=== PATIENT | female | born 1995 | race Caucasian/White ===

== ENCOUNTER 2023-07-09 03:36 | Observation (INO) | payer SELFPAY ==
[2023-07-09 03:47] VITALS: BMI 26.6
[2023-07-09] MEDS ORDERED: SODIUM CHLORIDE 0.9% 500 ML INFUS.BAG IV ONE (03:58)
[2023-07-09] MEDS ORDERED: FAMOTIDINE 20 MG/50 ML IVPB 20 MG/50 ML MG IVPB ONE ×2 (03:58→04:22)
[2023-07-09] MEDS ORDERED: ONDANSETRON 4 MG/2 ML VIAL IVPUSH ONE (03:58)
[2023-07-09] MEDS ORDERED: ACETAMINOPHEN 1000 MG/100 ML BAG IVPB ONE (03:58)
[2023-07-09] MEDS ORDERED: ACETAMINOPHEN INJECTION 100 ML IVPB ONE ×2 (04:21→14:47)
[2023-07-09] MEDS ORDERED: ONDANSETRON 4 MG/2 ML VIAL ONE (04:22)
[2023-07-09 04:33] LABS: BASO % 0.5 % (0-2.0); EOS % 1.7 % (0-4.5); HEMATOCRIT 37.7 % (32.4-45.2); HEMOGLOBIN 12.6 GM/dL (10.7-15.3); LYMPH % 11.8 % (8-40); MCHC 33.4 g/dl (32.0-36.0); MEAN PLT VOLUME 6.5 fl (7.5-11.1); MONO % 3.2 % (3.8-10.2); NEUT % 82.8 % (42.8-82.8); PLATELET COUNT 253 10^3/uL (134-434); RBC 4.49 M/mm3 (3.60-5.2); RDW 15.2 % (11.6-15.6); WHITE BLOOD COUNT 9.4 K/mm3 (4.0-10.0)
[2023-07-09 04:36] LABS: EPI CELLS 11 /uL (0-25.1); HYALINE CASTS 1 /uL (0-3.1); PH,URINE 6.5 (5.0-8.0); URINE APPEARANCE CLEAR; URINE BACTERIA 158 /uL (0-1359); URINE BILIRUBIN NEGATIVE (NEGATIVE); URINE COLOR YELLOW; URINE GLUCOSE (UA) NEGATIVE (NEGATIVE); URINE KETONE NEGATIVE (NEGATIVE); URINE LEUK ESTERASE NEGATIVE (NEGATIVE); URINE NITRITE NEGATIVE (NEGATIVE); URINE PROTEIN TRACE (NEGATIVE); URINE RBC 535 /uL (0-23.9); URINE UROBILINOGEN 0.2 mg/dL (0.2-1.0); URINE WBC 55 /uL (0-25.8)
[2023-07-09 04:52] LABS: POTASSIUM 4.2 mmol/L (3.5-5.1)
[2023-07-09 04:55] LABS: ALBUMIN 3.7 g/dl (3.4-5.0); BLOOD UREA NITROGEN 12.5 mg/dL (7-18); CALCIUM 9.7 mg/dL (8.5-10.1); MAGNESIUM 2.1 mg/dL (1.8-2.4)
[2023-07-09 04:57] LABS: CREATININE 0.7 mg/dL (0.55-1.3)
[2023-07-09 05:00] LABS: BILIRUBIN,TOTAL 0.2 mg/dL (0.2-1); TOT PROT 7.3 g/dl (6.4-8.2)
[2023-07-09] MEDS ORDERED: CEFTRIAXONE 1,000 MG in DEXTROSE 5%-WATER - 50 ML IVPB ONE (08:58)
[2023-07-09] MEDS ORDERED: TAMSULOSIN HCL 0.4 MG CAP PO ONE (08:58)
[2023-07-09] MEDS ORDERED: TAMSULOSIN HCL 0.4 MG CAP ONE (09:09)
[2023-07-09] MEDS ORDERED: CEFTRIAXONE 1 GM/50 ML BAG ONE (09:09)
[2023-07-09] MEDS ORDERED: ONDANSETRON 4 MG/2 ML VIAL IVPUSH PRN ×2 (10:03→14:27)
[2023-07-09] MEDS ORDERED: LACTATED RINGERS SOLUTION 1,000 ML/1,000 ML INFUS.BAG IV SCH ×2 (10:15→12:52)
[2023-07-09] MEDS ORDERED: ACETAMINOPHEN 1000 MG/100 ML BAG IVPB PRN ×2 (12:25→12:52)
[2023-07-09] MEDS ORDERED: KETOROLAC TROMETHAMINE 15 MG/ML VIAL IVPUSH PRN (12:51)
[2023-07-09] MEDS ORDERED: PROPOFOL 20 ML ONE (13:53)
[2023-07-09] MEDS ORDERED: MIDAZOLAM HCL 2 MG/2 ML SINGLE DOSE VIAL ONE (13:55)
[2023-07-09] MEDS ORDERED: LACTATED RINGERS SOLUTION 1,000 ML IV SCH (14:30)
[2023-07-09] MEDS ORDERED: ceFAZolin SODIUM 1 GM VIAL IVPB ONE (15:05)
[2023-07-09] MEDS ORDERED: IOVERSOL 300 MG/ML ML IV ONE (15:07)
[2023-07-09 17:37] VITALS: RESP 16
[2023-07-09 18:31] VITALS: BP 110/68; PULSE 70; TEMP 97.9
[2023-07-10] MEDS ORDERED: TAMSULOSIN HCL 0.4 MG CAP PO SCH (10:00)
[2023-07-10] MEDS ORDERED: CEFTRIAXONE 1 GM in DEXTROSE 5%-WATER - 50 ML IVPB ONE (20:00)
== END 2023-07-09 18:40 | disposition home or self-care (01) ==
LOC: JER 03:36 → JERBED 09:40 → INTOOBSV 09:40 → UNDOADMOB 09:40 → JERBED 10:04
PROVIDERS: ADMIT Internal Medicine; ATTEND Internal Medicine
PROC: 3E033GC Introduction of Other Therapeutic Substance into Peripheral Vein, Percutaneous Approach (ICD-10-PCS; 2023-07-09)
PROC: 3E0337Z Introduction of Electrolytic and Water Balance Substance into Peripheral Vein, Percutaneous Approach (ICD-10-PCS; 2023-07-09)
PROC: 0TC68ZZ Extirpation of Matter from Right Ureter, Via Natural or Artificial Opening Endoscopic (ICD-10-PCS; 2023-07-09)
PROC: 0T7B8DZ Dilation of Bladder with Intraluminal Device, Via Natural or Artificial Opening Endoscopic (ICD-10-PCS; 2023-07-09)
PROC: 3E03329 Introduction of Other Anti-infective into Peripheral Vein, Percutaneous Approach (ICD-10-PCS; principal; 2023-07-09 14:00)
PROC: 3E033NZ Introduction of Analgesics, Hypnotics, Sedatives into Peripheral Vein, Percutaneous Approach (ICD-10-PCS; 2023-07-09 14:00)
DX: N13.6 Pyonephrosis (principal); N20.1 Calculus of ureter
CPT/HCPCS: 0241U-QW; 36415; 74176-TC; 76000-TC-FY; 80053; 81003; 82360; 83690; 83735; 84703; 85025; 87086; 88300-TC; 93005; 93010; 94760; 99285-25; C2617; G0378